=== PATIENT | female | born 1960 | race Caucasian/White ===

== ENCOUNTER 2020-06-25 01:56 | Emergency (ER) | payer OTHER ==
[~2020-06-25] VITALS: Ht 157.5 cm; Wt 87.1 kg
[2020-06-25 02:03] VITALS: Ht 157.5 cm; Wt 87.1 kg
[2020-06-25 03:27] VITALS: BP 138/75
== END 2020-06-25 03:27 | disposition home or self-care (01) ==
LOC: ED 01:56
DX: S39.011A Strain of muscle, fascia and tendon of abdomen, initial encounter (principal); X58.XXXA Exposure to other specified factors, initial encounter; Y93.89 Activity, other specified; Y92.89 Other specified places as the place of occurrence of the external cause; Y99.8 Other external cause status
CPT/HCPCS: J1885; Q0092